=== PATIENT | female | born 1955 | race American Indian/Alaskan Native ===

== ENCOUNTER 2016-09-23 20:44 | Emergency (ER) | payer SELFPAY ==
[2016-09-23 21:25] VITALS: BP 155/96
[2016-09-23 21:38] LABS: Basophils % (Auto) 0.5 % (0.0-1.8); Eosinophils % (Auto) 2.6 % (0.0-4.3); Hematocrit 40.9 % (30.3-42.9); Hemoglobin 13.3 gm/dl (10.1-14.3); Mean Corpuscular HGB Conc 33 % (30-34); Mean Corpuscular Hemoglobin 29 pg (28-32); Mean Corpuscular Volume 90 fl (79-97); Platelet Count 211 K/mm3 (140-440); Red Blood Count 4.54 M/mm3 (3.65-5.03); Red Cell Distribution Width 13.8 % (13.2-15.2); White Blood Count 9.8 K/mm3 (4.5-11.0)
[2016-09-23 21:56] LABS: Anion Gap 15 mmol/L; Blood Urea Nitrogen 8 mg/dL (7-17); Calcium 9.5 mg/dL (8.4-10.2); Carbon Dioxide 26 mmol/L (22-30); Glucose 89 mg/dL (65-100); Potassium 3.8 mmol/L (3.6-5.0); Sodium 139 mmol/L (137-145)
[2016-09-23 22:17] LABS: Urine Drugs of Abuse Note Disclamer
[2016-09-23 22:44] LABS: Mucus,Urine FEW /HPF; RBC,Urine < 1.0 /HPF (0.0-6.0); WBC,Urine < 1.0 /HPF (0.0-6.0)
[2016-09-23 22:49] LABS: Bilirubin,Urine NEG (Negative); Blood,Urine NEG (Negative); Ketones,Urine NEG (Negative); Leukocyte Esterase,Urine NEG (Negative); Nitrite,Urine NEG (Negative); Protein,Urine <15 mg/dL mg/dL (Negative); Urobilinogen,Urine < 2.0 mg/dL (<2.0)
--- NOTE | 2016-09-24 02:34 | Emergency Department Report ---
HPI - General Chief Complaint: Psych Time Seen by Provider: 09/24/16 01:37 - HPI HPI: This is a 61-year-old Afro-[place] female presents to the emergency department with the complaint of decreased hearing in the right ear and feeling that the right ear is clogged. Then she began feeling as if the left ear was ringing. She then says she felt lightheaded as if she was slightly off balance. She tried to unclog the right ear by using a Q-tip but did not have any relief. She felt as if she was off balance while walking and this concerned her, so her daughter brought her in to be seen. She is from [place] and therefore does not have a local primary care physician. She does not have any past medical history. She has not taken anything for symptoms prior to presentation. She denies any headache, vision change, slurred speech, chest pain, shortness of breath, fever, nausea, vomiting. No sick contacts at home. ED Past Medical Hx - Past Medical History Previous Medical History?: No - Surgical History Past Surgical History?: Yes Additional Surgical History: T&A - Social History Smoking Status: Current Every Day Smoker Substance Use Type: Alcohol - Medications Home Medications: Home Medications Medication Instructions Recorded Confirmed Last Taken Type Fluticasone [Flonase] 1 spray NS QDAY #1 bottle 09/24/16 Unknown Rx Pseudoephedrine HCl [Sudafed 240 mg PO QDAY #7 tab.er.24h 09/24/16 Unknown Rx 24-Hour] ED Review of Systems ROS: Stated complaint: LIGHTHEADED/RINGING IN EARS Other details as noted in HPI Comment: All other systems reviewed and negative Constitutional: denies: chills, fever Eyes: denies: eye pain, eye discharge, vision change ENT: ear pain, hearing loss Respiratory: denies: cough, shortness of breath, wheezing Cardiovascular: denies: chest pain, palpitations Gastrointestinal: denies: abdominal pain, nausea, diarrhea Genitourinary: denies: urgency, dysuria, discharge Musculoskeletal: denies: back pain, joint swelling, arthralgia Skin: denies: rash, lesions Neurological: other (dizziness, lightheadedness). denies: headache Physical Exam - Physical Exam Vital Signs: Vital Signs 09/23/16 21:14 Temperature 97.8 F Pulse Rate 63 Respiratory 18 Rate Blood Pressure 155/96 O2 Sat by Pulse 100 Oximetry Physical Exam: GENERAL: The patient is well-developed well-nourished. HEENT: Normocephalic. Atraumatic. Extraocular motions are intact. Patient has moist mucous membranes. Pupils equal reactive to light bilaterally. No nystagmus. Normal appearing external ear canals and tympanic membranes. Oropharynx is clear without any tonsillar hypertrophy, erythema, exudates. NECK: Supple. Trachea is midline. CHEST/LUNGS: Clear to auscultation. There is no respiratory distress noted. HEART/CARDIOVASCULAR: Regular. There is no tachycardia. There is no gallop rub or murmur. ABDOMEN: Abdomen is soft, nontender. Patient has normal bowel sounds. There is no abdominal distention. SKIN: Skin is warm and dry. NEURO: The patient is awake, alert, and oriented. The patient is cooperative. The patient has no focal neurologic deficits. The patient has normal speech and gait. Cranial nerves II through XII grossly intact. No pronator drift. No dysmetria. MUSCULOSKELETAL: There is no tenderness or deformity. There is no limitation range of motion. There is no evidence of acute injury. Muscle strength 5 out of 5 for upper and lower extremities bilaterally. ED Course Vital Signs 09/23/16 21:14 Temperature 97.8 F Pulse Rate 63 Respiratory 18 Rate Blood Pressure 155/96 O2 Sat by Pulse 100 Oximetry ED Medical Decision Making - Lab Data Result diagrams: 09/23/16 21:28 09/23/16 21:28 - Medical Decision Making This is a 61-year-old female who presents to the emergency department with complaint of a clogged right ear, left ear ringing, sinus congestion and some feelings of disequilibrium. Physical exam the patient has no focal, motor or sensory deficits. Cranial nerves are intact. The external ear canals are intact and not obstructed and there is no perforation of the tympanic membranes. Patient's labs are unremarkable including no signs of leukocytosis, electrolyte abnormalities, renal insufficiency or glucose abnormalities. I saw the patient ambulating in the emergency department and appeared stable at doing so. The patient's symptoms does not appear consistent with vertigo at this time. However she complains of this congestion towards the sinuses and what appears to be eustachian tube dysfunction. This might make the patient feel as if she has some disequilibrium. I did suggest that we could do a CT scan of the head to rule out some type of atypical stroke, despite the fact that the patient has a NIH stroke scale of 0 at this time. However the patient and her daughter did not want CT imaging done at this point and preferred to try some treatments for sinus congestion and eustachian tube dysfunction. The patient was discharged with a prescription for Flonase and a decongest and. However she will return to the emergency department with any worsening of her symptoms, slurred speech, neurological deficits or any acute process. Critical Care Time: No Critical care attestation.: If time is entered above; I have spent that time in minutes in the direct care of this critically ill patient, excluding procedure time. ED Disposition Clinical Impression: Decreased hearing of right ear, Sinus congestion, Lightheaded, Dizziness Eustachian tube dysfunction Qualifiers: Laterality: right Qualified Code(s): H69.81 - Other specified disorders of Eustachian tube, right ear Disposition: DISCHARGED TO HOME OR SELFCARE Is pt being admited?: No Condition: Stable Instructions: Earache (ED), Lightheadedness (ED), Dizziness (ED) Additional Instructions: Please follow-up with a primary care doctor if possible. Return to the emergency department with any worsening of your symptoms, development of slurred speech, vision change, any neurological deficits or any acute distress. Prescriptions: Fluticasone [Flonase] 1 spray NS QDAY #1 bottle Pseudoephedrine HCl [Sudafed 24-Hour] 240 mg PO QDAY #7 tab.er.24h Referrals: ASHA DAY MD [Primary Care Provider] - 3-5 Days [facility] [place] [Outside] - 3-5 Days CLAY HENSLEY MD [Staff Physician] - 3-5 Days Time of Disposition: 02:36
== END 2016-09-24 02:44 | disposition home or self-care (01) ==
LOC: ED 09-24 01:02
DX: H69.81 Other specified disorders of Eustachian tube, right ear (principal); H93.291 Other abnormal auditory perceptions, right ear; R09.81 Nasal congestion; R42 Dizziness and giddiness; F17.200 Nicotine dependence, unspecified, uncomplicated
CPT/HCPCS: 36415; 80048; 80307; 81001; 85025; 99283; G0480; 80320